=== PATIENT | female | born 1995 | race Caucasian/White ===

== ENCOUNTER 2017-11-17 15:58 | Day surgery (SDC) | payer OTHER ==
[2017-11-17 17:47] VITALS: BP 109/58; TEMP 98.8; BMI 23.6
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
== END 2017-11-17 18:50 | disposition home or self-care (01) ==
LOC: ERS 15:58 → L&D/OP 15:58 → EDSTATUS 17:00 → L&D/OP 18:50
PROVIDERS: ATTEND Family Medicine
DX: Z04.1 Encounter for examination and observation following transport accident (principal); Z3A.30 30 weeks gestation of pregnancy; Z79.899 Other long term (current) drug therapy; V89.2XXA Person injured in unspecified motor-vehicle accident, traffic, initial encounter
CPT/HCPCS: 59025; 99282

== ENCOUNTER 2018-01-15 01:01 | Inpatient (IN) | payer OTHER ==
[2018-01-15 01:30] VITALS: BMI 24.7
--- NOTE | 2018-01-15 02:55 | PDOC.LDHP ---
Labor and Delivery H&P Chief complaint: contractions HPI: 22 y/o at 39w1d, patient of Dr. Rose, presents with regular ctx and spotting. Denies heavy VB, LOF, or decreased FM. ROS neg for HEENT, CV, pulm, GI, , neuro, psych, skin, musculoskeletal, or constitutional symptoms other than mentioned above. OB History Details: 1 prior term Current complications: none Past Medical History: None Current medications: pre-ale vitamins Previous surgical history: none Allergies/Adverse Reactions: Allergies Allergy/AdvReac Type Severity Reaction Status Date / Time No Known Allergies Allergy Verified 11/17/17 17:48 Social history: none - Physical Exam Vital signs reviewed and normal: yes General: NAD, resting Lungs: nonlabored breathing Abdomen: gravid Extremeties: no edema FHT: category 1 (130s, mod variability, + accels, no decels) [place] contractions every: 6 mins - Vaginal Exam cm dilated: 6 Effacement: 100% Station: -2 - OB Labs GBS: negative - Assessment L&D Assessment: term patient in labor - Plan Plan: admit to L&D, informed consent obtained -: Dr. Rose notified
[2018-01-15] MEDS ORDERED: Ondansetron PF 4 MG/2 ML Vial IVP PRN ×2 (04:04→04:34)
[2018-01-15] MEDS ORDERED: HYDROcodone/Acetaminophen 5/325 mg Tablet PO PRN ×2 (04:04)
[2018-01-15] MEDS ORDERED: Carboprost 250 MCG/ML AMP IM PRN (04:04)
[2018-01-15] MEDS ORDERED: Diphenoxylate HCl/Atropine Tablet PO PRN ×2 (04:04)
[2018-01-15] MEDS ORDERED: Lidocaine 1% (PF) 30 ML VIAL SC PRN (04:04)
[2018-01-15] MEDS ORDERED: Methylergonovine 0.2 MG/ML VIAL IM PRN ×2 (04:04→04:34)
[2018-01-15] MEDS ORDERED: NS / Oxytocin 40 units/1000ml 1,000 ML IV PRN (04:04)
[2018-01-15] MEDS ORDERED: Acetaminophen 500 MG TAB PO PRN (04:04)
[2018-01-15] MEDS ORDERED: Ibuprofen 800 MG TAB PO PRN (04:04)
[2018-01-15] MEDS ORDERED: Butorphanol Tartrate 1 MG/ML VIAL SLOW IVP PRN (04:04)
[2018-01-15] MEDS ORDERED: Promethazine HCl 25 MG/ML VIAL IM PRN ×2 (04:04→04:34)
[2018-01-15] MEDS ORDERED: Misoprostol 200 MCG TAB PR PRN (04:04)
[2018-01-15] MEDS ORDERED: Lidocaine 1% (PF) 30 ML VIAL ONE (04:06)
[2018-01-15] MEDS ORDERED: NS / Oxytocin 40 units/1000ml 1,000 ML ONE (04:06)
[2018-01-15] MEDS ORDERED: Lactated Ringer's 1,000 ML IV SCH (04:15)
[2018-01-15 04:16] LABS: Hemoglobin 12.7 g/dL (12.0-16.0); Mean Corpuscular HGB CONC 34.5 g/dL (32.0-36.0); Mean Corpuscular Hemoglobin 29.6 pg (27.0-31.0); Mean Corpuscular Volume 85.9 fL (78.0-98.0); Mean Platelet Volume 7.1 fL (7.4-10.4); Platelet Count 216 thou/uL (130-400); RBC Distribution Width 11.5 % (11.5-14.5); Red Blood Cell (RBC) Count 4.28 mill/uL (4.20-5.40); White Blood Cell (WBC) Count 10.8 thou/uL (4.8-10.8)
--- NOTE | 2018-01-15 04:31 | PDOC.OPDEL ---
OB Operative/Delivery Note Delivery Dr/Surgeon: Greer Tian MD Pre-Delivery Diagnosis: active labor Procedure/Post Delivery Dx: spontaneous vaginal delivery Weeks gestation: 39 Anesthesia: none - Findings A Sex: female ("Nyla") Weight: 6 lb 12 oz - 1 min: 9 - 5 min: 9 - Additional Findings/Plan Placenta delivered: spontaneous Repaired Obstetrical Laceration: 2nd degree Compilations/Other Findings: Precipitous delivery of vigorous female in cephalic presentation. Mom and baby doing well. Post delivery plan: routine recovery
[2018-01-15] MEDS ORDERED: Preparation H Ointment 28 GM TUBE PR PRN (04:34)
[2018-01-15] MEDS ORDERED: Misoprostol 200 MCG TAB VAG PRN (04:34)
[2018-01-15] MEDS ORDERED: Milk Of Magnesia 30 ML UDCUP PO PRN (04:34)
[2018-01-15] MEDS ORDERED: Benzocaine/Menthol 20-0.5% 60 ML CAN TOP PRN (04:34)
[2018-01-15] MEDS ORDERED: Lanolin Ointment 7 GM TUBE TOP PRN (04:34)
[2018-01-15] MEDS ORDERED: diphenhydrAMINE 25 MG CAP PO PRN (04:34)
[2018-01-15] MEDS ORDERED: Bisacodyl 10 MG SUPP PR PRN (04:34)
[2018-01-15] MEDS ORDERED: NS / Oxytocin 40 units/1000ml 1,000 ML IV SCH ×2 (04:45→09:00)
[2018-01-15 04:53] LABS: Syphilis Antibody Nonreactive (Nonreactive); Syphilis Antibody Index 0.05 S/CO (<1.00 Non-Reactive)
[2018-01-15 04:54] LABS: HBSAg Index 0.24 S/CO (0-0.99); Hep B Surf Ag Non-Reactive S/CO (NonReactive)
[2018-01-15] MEDS: Ibuprofen 800 MG TAB PO SCH ×3 (06:50→21:12)
[2018-01-15] MEDS: Ferrous Sulfate 325 MG TAB PO SCH ×2 (07:56→17:09)
[2018-01-15] MEDS: Docusate Calcium (SURFAK) 240 MG CAP PO SCH ×2 (08:34→21:12)
[2018-01-15] MEDS ORDERED: Varicella virus, LIVE 0.5 ML VIAL SC ONE (09:00)
[2018-01-15] MEDS ORDERED: Measles/Mumps/Rubella 10 MCG/0.5 ML VIAL SC ONE (09:00)
[2018-01-15] MEDS ORDERED: Adacel (T-DAP) 0.5 ML SYRINGE IM ONE (09:00)
[2018-01-16] MEDS: Ibuprofen 800 MG TAB PO SCH (06:37)
[2018-01-16] MEDS: Docusate Calcium (SURFAK) 240 MG CAP PO SCH (07:55)
[2018-01-16] MEDS: Ferrous Sulfate 325 MG TAB PO SCH (08:47)
[2018-01-16 08:56] VITALS: BP 109/66; TEMP 97.7
== END 2018-01-16 11:15 | disposition home or self-care (01) | DRG 807 ==
LOC: L&D/OP 01:01 → L&D 04:31 → 3SW 06:34
PROVIDERS: ADMIT Family Medicine; ATTEND Family Medicine
PROC: 10E0XZZ Delivery of Products of Conception, External Approach (ICD-10-PCS; principal; 2018-01-15)
PROC: 0KQM0ZZ Repair Perineum Muscle, Open Approach (ICD-10-PCS; 2018-01-15)
DX: O70.1 Second degree perineal laceration during delivery (principal); Z37.0 Single live birth; Z3A.39 39 weeks gestation of pregnancy
CPT/HCPCS: 85027; 86780; 86850; 86900; 86901; 87340; 99285; J2001